=== PATIENT | female | born 1965 | race Caucasian/White ===

== ENCOUNTER 2017-06-24 18:46 | Emergency (ER) | payer OTHER ==
[~2017-06-24] VITALS: Ht 170.2 cm; Wt 69.4 kg
[2017-06-24] MEDS ORDERED: PROPARACAINE OPHTH 0.5%, 15ML ONE (19:44)
[2017-06-24] MEDS ORDERED: FLUORESCEIN OPHTHALMIC 1 MG STRIP ONE (19:44)
[2017-06-24] MEDS ORDERED: OXYcodone/APAP 5/325MG TABLET ONE (19:55)
[2017-06-24] MEDS ORDERED: ONDANSETRON ODT 4 MG ONE (19:58)
[2017-06-24] MEDS ORDERED: ONDANSETRON ODT 4 MG PO ONE (20:00)
[2017-06-24] MEDS ORDERED: OXYcodone/APAP 5/325MG TABLET PO ONE (20:00)
[2017-06-24] MEDS ORDERED: PROPARACAINE OPHTH 0.5%, 15ML EACHEYE ONE (20:00)
[2017-06-24] MEDS ORDERED: FLUORESCEIN OPHTHALMIC 1 MG STRIP EACHEYE ONE (20:00)
[2017-06-24 22:29] VITALS: BP 141/74
== END 2017-06-24 22:31 | disposition home or self-care (01) ==
LOC: ED 22:01
DX: H16.012 Central corneal ulcer, left eye (principal)
CPT/HCPCS: 99283; Q0162